=== PATIENT | male | born 1995 | race Caucasian/White ===

== ENCOUNTER 2020-03-04 07:48 | Outpatient (REF) | payer OTHER, SELFPAY | END 2020-03-04 07:49 | disposition home or self-care (01) | LOC: HO.LAB 07:48 | PROVIDERS: Visit Provider Internal Medicine | DX: Z20.828 Contact with and (suspected) exposure to other viral communicable diseases (principal) | CPT/HCPCS: 87635 ==

== ENCOUNTER 2020-03-26 12:08 | Outpatient (REF) | payer OTHER, SELFPAY | END 2020-03-26 12:09 | disposition home or self-care (01) | LOC: HO.LAB 12:08 | PROVIDERS: Visit Provider Internal Medicine | DX: Z20.828 Contact with and (suspected) exposure to other viral communicable diseases (principal) | CPT/HCPCS: C9803; U0003 ==

== ENCOUNTER 2020-04-05 11:20 | Emergency (ER) | payer OTHER, SELFPAY ==
[2020-04-05 11:26] VITALS: BP 107/60; PULSE 72; RESP 16; TEMP 36.7; O2SAT 100; BMI 19.1
[2020-04-05 12:38] LABS: MANUAL DIFF FLAG NO
[2020-04-05 12:39] LABS: Basophils Percent Auto 0.8 % (0-2); Eosinophils Absolute Auto 0.3 X10*3/uL (0.0-0.4); Eosinophils Percent Auto 4.9 % (0-4); Hematocrit 38.6 % (42-52); Hemoglobin 12.7 g/dl (14.0-18.0); Lymphocytes Absolute Auto 2.1 X10*3/uL (1.2-4.9); Mean Corpuscular HGB Conc 32.9 g/dl (31.0-36.0); Mean Corpuscular Hemoglobin 27.6 pg (27.0-33.0); Mean Corpuscular Volume 83.9 fL (80-98); Mean Platelet Volume 9.8 fL (9.4-12.4); Monocytes Absolute Auto 0.5 X10*3/uL (0.1-1.2); Neutrophils Absolute Auto 2.3 X10*3/uL (2.0-8.3); Neutrophils Percent Auto 44.3 % (45-73); Platelet Count 254 X10*3/uL (160-400); Red Cell Distribution Width 12.7 % (11.0-16.0); White Blood Count 5.1 X10*3/uL (4.8-10.8)
[2020-04-05 12:43] LABS: Glucose Urine UA NEG (NEG); Leukocyte Esterase Urine NEG (NEG); Nitrite Urine NEG (NEG); Specific Gravity - Urine 1.025 (1.005-1.025); Urine Blood NEG (NEG); Urine Ketones NEG (NEG); Urine Protein NEG (NEG-TRACE)
[2020-04-05 12:47] LABS: Appearance Urine CLEAR; Color Urine YELLOW
[2020-04-05 12:52] LABS: Squamous Epithelial Cell Urine TRACE /LPF; WBC Urine 0 /HPF (0-4)
[2020-04-05 13:14] LABS: Alanine Aminotransferase 17 U/L (0-40); Albumin Level 4.1 g/dL (3.5-5.0); Alkaline Phosphatase 80 U/L (39-117); Anion Gap 12 (12-20); Aspartate Amino Transferase 20 U/L (5-37); Bilirubin Total 0.3 mg/dL (0.0-1.0); Blood Urea Nitrogen 11 mg/dL (9-16); Calcium 8.4 mg/dL (8.4-10.2); Carbon Dioxide 26 mmol/L (22-29); Chloride 104 mmol/L (96-108); Creatinine Clr Calc Pharmacy 121.3; Estimated Glomerular Filt Rate > 60; Glucose Random 83 mg/dL (60-115); Potassium 3.8 mmol/l (3.3-5.1); Sodium 138 mmol/L (135-145)
[2020-04-05 14:00] VITALS: BP 106/58; PULSE 68; RESP 18; TEMP 36.7; O2SAT 100
--- NOTE | 2020-04-05 14:30 | ED_ITS ---
HPI - Back Pain/Injury General Chief Complaint: Back Pain/Injury Stated Complaint: back pain - work related Time Seen by Provider: 04/05/20 11:46 Source: patient Mode of arrival: ambulatory Limitations: no limitations History of Present Illness HPI Narrative: 25-year-old male otherwise healthy denies significant past medical history presents ambulatory via triage with complaint of right-sided low back pain onset since 04/03/2020 after he reports he was lifting a 20-30 lb box at work and afterwards had a achy sensation the right lower side back and has had right-sided back pain since. He also reports intermittent constipation with some diffuse abdominal pain and rectal bleeding. No abdominal pain or rectal bleeding at this time does have slight constipation. As relates to the constipation and rectal bleeding this is been going on for several months now. MD elicited complaint: back pain Pertinent past history: prior back pain Onset (ago): day(s) Severity: mild Similar Symptoms Previously: No Exacerbating factors: none Relieving factors: none Work related injury: Yes Related Data Previous Rx's Medication Instructions Recorded cyclobenzaprine 5 mg PO TID PRN #20 tab 04/05/20 ibuprofen 800 mg PO Q8H PRN #15 tab 04/05/20 polyethylene glycol 3350 [Miralax] 17 g PO DAILY PRN #119 g 04/05/20 Allergies Allergy/AdvReac Type Severity Reaction Status Date / Time No Known Allergies Allergy Unverified 01/30/20 18:28 Review of Systems Review of Systems: Constitutional: No Weight loss, No Fever, No Chills, No Night Sweats, No Fatigue, No Malaise ENT/Mouth: No Hearing loss, No Ear Pain, No Nasal Congestion, No Sinus Pain, No Hoarseness, No sore throat, No Rhinorrhea, No Swallowing Difficulty Eyes: No Eye Pain, No Swelling, No Redness, No Foreign Body, No Discharge, No Vision Changes Cardiovascular: No Chest Pain, No SOB, No Dyspnea on Exertion, No Orthopnea, No Edema, No Palpitations Respiratory: No Cough, No Sputum, No Wheezing, No Smoke Exposure, No Dyspnea Gastrointestinal: No Nausea, No Vomiting, No Diarrhea, No Constipation, No abdominal Pain, no black stools, when bleeding does happen slight streaks also the stool. Genitourinary: no irregular bleeding, No Dysuria, No Urinary Frequency, No Hematuria, No Urinary Incontinence, No Urgency, No Flank Pain, No Urinary Flow Changes, No Hesitancy Musculoskeletal: No joint pain, No Myalgias, No Joint Swelling Skin: No Skin Lesions, No rash Neuro: No Weakness, No Numbness, No Paresthesias, No Loss of Consciousness, No Dizziness, No Headache Psych: No Anxiety/Panic, No Depression, No SI/HI/AH/VH, No Social Issues, Heme/Lymph: No Bruising, No Bleeding,No Lymphadenopathy Endocrine: No Polyuria, No Polydipsia, No Temperature Intolerance Yes all other systems are reviewed and are negative [facility] Past Medical History Medical History (Updated 04/05/20 @ 14:32 by Ismael Alvarenga NP) No known health problems Social History Social History Alcohol intake: never Smoking Status: Never smoker Use of substances other than those prescribed or required for medical reasons: No Advance Directives: No Advance Directives Information Provided: Yes Physical Exam Vital Signs: Vital Signs: Last Vital Signs Temp 98.1 F 04/05/20 11:26 Pulse 72 04/05/20 11:26 Resp 16 04/05/20 11:26 BP 107/60 04/05/20 11:26 Pulse Ox 100 04/05/20 11:26 Body Mass Index 19.1 Reviewed Const: General: cooperative and healthy appearing; No acute distress or intoxicated appearing Nutritional Appearance: average body habitus Orientation/consciousness: patient oriented x3 HENMT: Head: Yes normal to inspection Ears: hearing grossly normal bilaterally Eyes: General: appearance normal, both eyes and all related structures Visual Lam: normal visual lam by confrontation Neck: Neck: Yes normal visual inspection, No positive Brudzinski's sign, No positive Kernig's sign and No tender Thyroid: Thyroid normal Chest: Chest palpation & inspection: normal inspection of the chest Resp: Effort & Inspection: normal respiratory effort Cardio: Jugular venous distension: no JVD GI: Inspection: Yes normal to inspection Percussion: Yes normal to percussion Auscultation: normal bowel sounds Rectal Exam - Male: Yes External hemorrhoid(s) present ([employer] RN Fe present, 2 external noninflamed hemorrhoids at 5/6 oclock ) : General: Yes no CVA tenderness Back/Spine/Pelvis: Back: no CVA tenderness Skin: General skin exam: no rashes or lesions noted Neuro: General: patient oriented x3 Extrem: General: Yes normal to inspection Course Course Course Narrative: AP of low back pain in setting of strain type injury from lifting a box at work. No low back pain red flags, no loss of GI control. No midline to palpation. Steady gait. Is released to his constipation/rectal bleeding likely from hemorrhoids occult stool negative. Exam positive hemorrhoids. Labs otherwise stable. No active bleeding. Will be discharged home with stool softener, muscle relaxants and NSAIDs with instruction for follow-up. Occupational health follow-up provided. Agree with plan. Stable for discharge. MDM - Back Pain/Injury Lab Data Result diagrams: 04/05/20 12:32 04/05/20 12:32 Labs: Lab Results 04/05/20 04/05/20 04/05/20 Range/Units 12:32 12:32 12:32 WBC 5.1 (4.8-10.8) X10*3/uL RBC 4.60 (4.60-5.80) X10*6/uL Hgb 12.7 L (14.0-18.0) g/dl Hct 38.6 L (42-52) % MCV 83.9 (80-98) fL MCH 27.6 (27.0-33.0) pg MCHC 32.9 (31.0-36.0) g/dl RDW 12.7 (11.0-16.0) % Plt Count 254 (160-400) X10*3/uL MPV 9.8 (9.4-12.4) fL Immature Gran % (Auto) 0.0 (0.0-0.4) % Neut % (Auto) 44.3 L (45-73) % Lymph % (Auto) 41.0 H (20-40) % [place] % (Auto) 9.0 (2-11) % Eos % (Auto) 4.9 H (0-4) % Baso % (Auto) 0.8 (0-2) % Lymph # (Auto) 2.1 (1.2-4.9) X10*3/uL [place] # (Auto) 0.5 (0.1-1.2) X10*3/uL Eos # (Auto) 0.3 (0.0-0.4) X10*3/uL Baso # (Auto) 0.0 (0.0-0.2) X10*3/uL Abs Immat Gran (auto) 0.00 (0.00-0.03) X10*3/uL Absolute Neuts (auto) 2.3 (2.0-8.3) X10*3/uL Absolute Nucleated RBC 0.000 (0.0-0.012) X10*3/uL Nucleated RBC % (auto) 0.0 (0.0-0.2) /100WBC Sodium 138 (135-145) mmol/L Potassium 3.8 (3.3-5.1) mmol/l Chloride 104 (96-108) mmol/L Carbon Dioxide 26 (22-29) mmol/L Anion Gap 12 (12-20) BUN 11 (9-16) mg/dL Creatinine 0.83 (0.5-1.4) mg/dL Estim Creat Clear Calc 121.3 Estimated GFR > 60 Random Glucose 83 (60-115) mg/dL Calcium 8.4 (8.4-10.2) mg/dL Total Bilirubin 0.3 (0.0-1.0) mg/dL AST 20 (5-37) U/L ALT 17 (0-40) U/L Alkaline Phosphatase 80 (39-117) U/L Total Protein 7.0 (6.5-8.0) g/dL Albumin 4.1 (3.5-5.0) g/dL Urine Color YELLOW Urine Appearance CLEAR Urine pH 6.0 (5.0-8.0) Ur Specific [place] 1.025 (1.005-1.025) Urine Protein NEG (NEG-TRACE) MG/DL Urine Glucose (UA) NEG (NEG) MG/DL Urine Ketones NEG (NEG) MG/DL Urine Blood NEG (NEG) Urine Nitrite NEG (NEG) Ur Leukocyte Esterase NEG (NEG) Urine RBC 1-4 (0) /HPF Urine WBC 0 (0-4) /HPF Ur Squamous Epith Cells TRACE /LPF Urine Bacteria NONE /LPF Discharge Plan Discharge Clinical Impression: Constipation, Acute hemorrhoid Strain of lumbar region Qualifiers: Encounter type: initial encounter Qualified Code(s): S39.012A - Strain of muscle, fascia and tendon of lower back, initial encounter Patient Disposition: Home, Self-Care Instructions: Constipation (ED), Hemorrhoids (ED), Low Back Strain (ED), Lower Back Exercises (ED) Prescriptions: New cyclobenzaprine 10 mg tablet 5 mg PO TID PRN (Reason: muscle spasm) Qty: 20 RF: 0 ibuprofen 800 mg tablet 800 mg PO Q8H PRN (Reason: pain) Qty: 15 RF: 0 polyethylene glycol 3350 [Miralax] 17 gram/dose powder 17 g PO DAILY PRN (Reason: constipation) Qty: 119 RF: 0 Referrals: [facility] [Provider Group] - 3 days Physician,Unknown [Primary Care Provider] - 3 days Stand Alone Forms: Work/School Release Discharge Date/Time: 04/05/20 14:42
== END 2020-04-05 14:42 | disposition home or self-care (01) ==
PROVIDERS: Nurse Practitioner Primary Care; Emergency Provider Emergency Medicine
DX: S39.012A Strain of muscle, fascia and tendon of lower back, initial encounter (principal); K59.00 Constipation, unspecified; K64.8 Other hemorrhoids; X50.0XXA Overexertion from strenuous movement or load, initial encounter; Y93.9 Activity, unspecified; Y92.9 Unspecified place or not applicable; Y99.0 Civilian activity done for income or pay
CPT/HCPCS: 36415; 80053; 81001; 85025; 99283; 99284

== ENCOUNTER 2020-07-21 09:15 | Outpatient (REF) | payer OTHER, SELFPAY | END 2020-07-21 09:16 | disposition home or self-care (01) | LOC: HO.LAB 09:15 | PROVIDERS: Visit Provider Internal Medicine | DX: Z20.822 Contact with and (suspected) exposure to COVID-19 (principal) | CPT/HCPCS: 36415; C9803; U0003; U0005 ==

== ENCOUNTER 2020-07-29 11:27 | Outpatient (REF) | payer OTHER, SELFPAY | END 2020-07-29 11:28 | disposition home or self-care (01) | LOC: HO.LAB 11:27 | PROVIDERS: Visit Provider Internal Medicine | DX: Z20.822 Contact with and (suspected) exposure to COVID-19 (principal) | CPT/HCPCS: 36415; C9803; U0003; U0005 ==

== ENCOUNTER 2020-11-06 11:49 | Emergency (ER) | payer OTHER, SELFPAY ==
[2020-11-06 11:52] VITALS: BP 124/70; PULSE 82; RESP 18; TEMP 36.3; O2SAT 100; BMI 19.5
--- NOTE | 2020-11-06 12:19 | ED.LOWEXIN ---
HPI - Extremity Injury (Lower) General Chief Complaint: Extremity Injury, Lower Stated Complaint: right foot lac Time Seen by Provider: 11/06/20 12:19 Source: patient Mode of arrival: ambulatory Limitations: no limitations History of Present Illness HPI Narrative: 25 y/o male presents to the ER from work for evaluation of right foot pain. He reports 5 days ago he sustained a small cut to the base of his great toe when he kicked a rock while swimming in a river. He was not evaluated at the time and pain improved throughout the week. He denies signs of infection to the area. This morning he accidentally hit the same spot on his right foot against his bed frame and had recurrence of the pain. He went to work and then was sent in because he was c/o pain. He has no limp. No weakness or numbness. MD complaint: foot injury Onset (ago): day(s) Injury: Right: foot Type of Injury: blunt Place: home Severity: mild Severity scale (1-10): 4 Relieving factors: immobilization and rest Exacerbating factors: palpation Context: direct blow Associated symptoms: ambulatory Other symptoms: none Related Data Previous Rx's Medication Instructions Recorded cyclobenzaprine 5 mg PO TID PRN #20 tab 04/05/20 ibuprofen 800 mg PO Q8H PRN #15 tab 04/05/20 polyethylene glycol 3350 [Miralax] 17 g PO DAILY PRN #119 g 04/05/20 Allergies Allergy/AdvReac Type Severity Reaction Status Date / Time No Known Allergies Allergy Verified 11/06/20 11:51 Review of Systems Review of Systems: Constitutional: No Fever, No Chills Gastrointestinal: No Nausea, No Vomiting Musculoskeletal: No joint pain, No Myalgias Skin: + Skin Lesions, No rash Neuro: No Weakness, No Numbness Heme/Lymph: No Bruising PMFSH Past Medical History Attestation statement: The following information was validated with the patient. Medical History No known health problems Social History Social History Alcohol intake: never Advance Directives: Yes Advance Directives Information Provided: Yes Advance Directives on File: No Physical Exam Vital Signs: Vital Signs: Last Vital Signs Temp 97.3 F 11/06/20 11:52 Pulse 82 11/06/20 11:52 Resp 18 11/06/20 11:52 BP 124/70 11/06/20 11:52 Pulse Ox 100 11/06/20 11:52 Body Mass Index 19.5 Appearance: Alert. Oriented X3. No acute distress. HEENT: normal inspection CVS: Normal heart rate and rhythm. Pulses normal. Respiratory: No respiratory distress. Skin: Skin warm and dry. Normal skin color. Normal skin turgor. No rashes. Extremities: right great toe medial MCP area with <1cm superficial abrasion with central yellowing, cleansed wtih H2O2, no surrounding erythema or tenderness to the joint. normal ROM of the great toe. Neuro: Oriented X 3. No motor deficit. No sensory deficit. Course Course Course Narrative: 25 y/o male presenting with right foot pain s/p minor blunt trauma. Clinical presentation and examination do not support fracture. No need for x-rays at this time. Will give Tdap and local wound care provided. Patient counseled on warning signs of infection. Stable for d/c home. Discharge Plan Discharge Clinical Impression: Abrasion Patient Disposition: Home, Self-Care Instructions: Diphtheria/Acellular Pertussis/Tetanus Booster Vaccine (Tdap) (By..., Abrasion (ED) Additional Instructions: You were given Tetanus shot today. It is good for 5 years. Keep wound clean and dry. Use bacitracin 2 times per day. If you notice area getting red, hot, swollen or more painful come back to the ER for further evaluation. Follow up with your doctor as needed. Prescriptions: No Action cyclobenzaprine 10 mg tablet 5 mg PO TID PRN (Reason: muscle spasm) Qty: 20 RF: 0 ibuprofen 800 mg tablet 800 mg PO Q8H PRN (Reason: pain) Qty: 15 RF: 0 polyethylene glycol 3350 [Miralax] 17 gram/dose powder 17 g PO DAILY PRN (Reason: constipation) Qty: 119 RF: 0 Stand Alone Forms: Work/School Release Interventions: ED Discharge Assessment Last Done: 11/06/20 12:47 Discharge Date/Time: 11/06/20 12:52
[2020-11-06] MEDS: Diphth,Pertus(ACell),Tet Adult 0.5 ML SYRINGE IM (12:42)
--- NOTE | 2020-11-06 12:51 | PC.NURSE ---
PT LAC TO FOOT CLEANED AND ANTIBIOTIC OINTMENT APPLIED WITH BAND AID. PT UPDATED WITH T-DAP
== END 2020-11-06 12:52 | disposition home or self-care (01) ==
PROVIDERS: Emergency Provider Emergency Medicine
DX: S90.411A Abrasion, right great toe, initial encounter (principal); W22.09XA Striking against other stationary object, initial encounter; Y93.11 Activity, swimming; Y92.828 Other wilderness area as the place of occurrence of the external cause; Y99.9 Unspecified external cause status
CPT/HCPCS: 90471; 90715; 96372; 99283; 99284

== ENCOUNTER 2021-01-21 12:08 | Outpatient (REF) | payer OTHER, SELFPAY | END 2021-01-21 12:09 | disposition home or self-care (01) | LOC: HO.LAB 12:08 | PROVIDERS: Visit Provider Internal Medicine | DX: Z20.822 Contact with and (suspected) exposure to COVID-19 (principal) | CPT/HCPCS: C9803; U0003; U0005 ==